=== PATIENT | male | born 1975 | race Caucasian/White ===

== ENCOUNTER → 2024-04-02 07:46 | Outpatient (REF) | payer BC, SELFPAY | LOC: HWRAD 07:46 | PROVIDERS: ATTENDING PHYSICIAN Family Medicine | DX: R22.0 Localized swelling, mass and lump, head (principal) | CPT/HCPCS: 76604 ==

== ENCOUNTER → 2024-06-25 06:27 | Day surgery (SDC) | payer BC, SELFPAY | LOC: GI 06:27 | PROVIDERS: ATTENDING PHYSICIAN Internal Medicine | DX: Z12.11 Encounter for screening for malignant neoplasm of colon (principal); D12.4 Benign neoplasm of descending colon; K63.5 Polyp of colon | CPT/HCPCS: 45385; 45380; 88305 ==